=== PATIENT | female | born 2000 | race Caucasian/White ===

== ENCOUNTER 2023-05-10 12:46 | Emergency (ER) | payer OTHER, SELFPAY ==
[2023-05-10 12:54] VITALS: BP 140/79; PULSE 82; RESP 16; TEMP 37.2; O2SAT 100
--- NOTE | 2023-05-10 13:16 | ED.GENADULT ---
HPI - General Adult General Chief complaint: Upper Respiratory Infection Stated complaint: throat/nose/chills Source: patient Mode of arrival: ambulatory Limitations: no limitations History of Present Illness HPI narrative: Patient presents for evaluation of sick symptoms for last 2-3 days. Symptoms include and itchy/scratchy throat, some pressure in her ears and an occasional cough. No fever, chills, nausea, vomiting. She indicates that there is ?a bug going around the workplace . She indicates she came in today to get a note to excuse her from work. She indicates that her symptoms are mild. She reports some bilateral lower back pain that started this morning. She thinks that she slept on it wrong?. She denies any abdominal pain, suprapubic pain or urinary symptoms. Related Data Home Medications Medication Instructions Recorded Confirmed bupropion HCl 150 mg 24 hr tablet, 10 mg PO DAILY 05/10/23 05/10/23 extended release escitalopram oxalate 10 mg tablet 10 mg PO DAILY 05/10/23 05/10/23 Allergies Allergy/AdvReac Type Severity Reaction Status Date / Time No Known Allergies Allergy Verified 05/10/23 13:03 Review of Systems Review of Systems: CONSTITUTIONAL: Denies fever, chills, or sweats. EYES: Denies visual changes, redness, or discharge. ENT: Reports ?itchy scratchy throat? and ear pressure bilaterally. CARDIOVASCULAR: Denies chest pain, palpitations, or edema. RESPIRATORY: Reports occasional cough. Denies shortness of breath. GASTROINTESTINAL: Denies abdominal pain, nausea, vomiting, or diarrhea. GENITOURINARY: Denies dysuria or hematuria. SKIN: Denies rash or itching. MUSCULOSKELETAL: Reports low back pain. Denies joint pain, or myalgia. NEUROLOGIC: Denies headache, numbness, dizziness, or weakness. PSYCHIATRIC: Denies anxiety or depression. [facility] Past Medical History Medical History No pertinent past medical history Surgical History Surgical History No pertinent past surgical history Family History Family History Mother Family history non-contributory Social History Social History Substance use: never Gender identity (if verbalized by the patient): Female Spiritual care concerns: No Exam Narrative: GENERAL: Well-appearing, well-nourished, and in no acute distress. HEAD: Normocephalic, atraumatic. EYES: PERRLA and EOMI. ENT: Nares clear, no rhinorrhea or epistaxis. Mucous membranes moist. Oropharynx without tonsillar hypertrophy exudate or other lesions. Bilateral TMs pearly centeno nonbulging NECK: Supple. No adenopathy or masses. No carotid bruits or JVD CHEST: Clear to auscultation. No respiratory distress. No wheezes rales or rhonchi HEART: Regular rate and rhythm. No murmur heard. Normal peripheral pulses. ABDOMEN: Soft, nontender, nondistended, normal active bowel sounds. BACK: No CVA tenderness EXTREMITIES: Normal range of motion. No edema. SKIN: Warm, dry, no rash. NEURO: No focal deficits. Alert and oriented x3. PSYCH: Normal mood and affect. Course Course Emergency Course: This is a 22-year-old female who presented for evaluation of sick symptoms. COVID, influenza, strep were all negative. Urinalysis was performed due to low back pain and did not show any evidence of infection. Likely musculoskeletal origin. Provided with work note. [id number] agents for symptom management. Follow up with primary provider. Go to the ER for worsening symptoms. Pt in agreement with plan of care. Level of Care: Express Care Visit Vital Signs Vital signs: Vital Signs Temperature 37.2 C 05/10/23 12:54 Pulse Rate 82 05/10/23 12:54 Respiratory Rate 16 05/10/23 12:54 Blood Pressure 140/79 05/10/23 12:54 Pulse
== END 2023-05-10 13:32 | disposition home or self-care (01) ==
PROVIDERS: Emergency Provider Nurse Practitioner
DX: J06.9 Acute upper respiratory infection, unspecified (principal); M54.50 Low back pain, unspecified; Z20.822 Contact with and (suspected) exposure to COVID-19
CPT/HCPCS: 81003; 87081; 87426; 87804; 87880; 99213; G0463